=== PATIENT | male | born 1970 | race Caucasian/White ===

== ENCOUNTER 2021-08-18 08:31 | Emergency (ER) | payer OTHER ==
[2021-08-18 08:53] VITALS: BP 123/69; PULSE 80; TEMP 99.2; BMI 35.5
== END 2021-08-18 09:10 | disposition home or self-care (01) ==
LOC: JER 08:31
DX: J11.1 Influenza due to unidentified influenza virus with other respiratory manifestations (principal)
CPT/HCPCS: 87804; 87807; 99283-25; C9803; U0003; U0005